=== PATIENT | male | born 1950 | race Caucasian/White ===

== ENCOUNTER 2018-04-18 10:14 | Emergency (ER) | payer SELFPAY ==
[2018-04-18 10:24] VITALS: BP 179/84; PULSE 65; TEMP 97.7; BMI 26.6
--- NOTE | 2018-04-18 10:51 | PDOC ---
History of Present Illness - General Chief Complaint: Pain Stated Complaint: left ear pain Time Seen by Provider: 04/18/18 10:22 - History of Present Illness Initial Comments: 04/18/18 10:47 68yo M hx HTN presents to the ED with L ear pain, pressure and decreased hearing x 2 days. Denies discharge, bleeding. Denies fevers, chills. No hx ear infection. Denies other sxs of CP, SOB, runny nose, cough, sore throat, headache , weakness, numbness, N/V/D, visual sxs. Denies sick contacts. Past History - Past Medical History Allergies/Adverse Reactions: Allergies Allergy/AdvReac Type Severity Reaction Status Date / Time No Known Allergies Allergy Verified 04/18/18 10:21 Home Medications: Ambulatory Orders Amoxicillin - [Amoxicillin 875mg Tablet -] 875 mg PO BID #20 tablet 04/18/18 COPD: No Disorders: Yes HTN: Yes - Immunization History Td Vaccination: No TDAP Vaccination: No - Suicide/Smoking/Psychosocial Hx Smoking Status: No Smoking History: Never smoked Number of Cigarettes Smoked Daily: 0 Hx Alcohol Use: No Drug/Substance Use Hx: No Substance Use Type: None Review of Systems - Review of Systems Comments:: 04/18/18 10:47 GENERAL/CONSTITUTIONAL: No fever or chills. No weakness. HEAD, EYES, EARS, NOSE AND THROAT: No change in vision. +ear pain, no discharge. No sore throat. GASTROINTESTINAL: No nausea, vomiting, diarrhea or constipation. GENITOURINARY: No dysuria, frequency, or change in urination. CARDIOVASCULAR: No chest pain or shortness of breath. RESPIRATORY: No cough, wheezing, or hemoptysis. MUSCULOSKELETAL: No joint or muscle swelling or pain. No neck or back pain. SKIN: No rash NEUROLOGIC: No headache, vertigo, loss of consciousness, or change in strength/ sensation. ENDOCRINE: No increased thirst. No abnormal weight change. HEMATOLOGIC/LYMPHATIC: No anemia, easy bleeding, or history of blood clots. ALLERGIC/IMMUNOLOGIC: No hives or skin allergy. *Physical Exam - Vital Signs Last Vital Signs Temp Pulse Resp BP Pulse Ox 97.7 F 65 18 179/84 H 100 04/18/18 10:22 04/18/18 10:22 04/18/18 10:22 04/18/18 10:22 04/18/18 10:22 - Physical Exam Comments: 04/18/18 10:48 GENERAL: Awake, alert, and fully oriented, in no acute distress HEAD: No signs of trauma EYES: PERRLA, EOMI, sclera anicteric, conjunctiva clear ENT: Normal hearing, L ear with erythema in canal, bulging TM with no light reflex, and effusion behind TM, R ear with no erythema, no effusion, normal TM with normal light reflex, nares patent, oropharynx clear without exudates. Moist mucosa NECK: Normal ROM, supple, no lymphadenopathy, JVD, or masses LUNGS: Breath sounds equal, clear to auscultation bilaterally. No wheezes, and no crackles HEART: Regular rate and rhythm, normal S1 and S2, no murmurs, rubs or gallops ABDOMEN: Soft, nontender, normoactive bowel sounds. EXTREMITIES: Normal range of motion, no edema. No clubbing or cyanosis. No cords, erythema, or tenderness NEUROLOGICAL: Normal speech, cranial nerves intact, equal strength and sensation b/l, normal gait SKIN: Warm, Dry, normal turgor, no rashes or lesions noted. Medical Decision Making - Medical Decision Making 04/18/18 10:51 68yo M presents to the ED with ear pain, pressure and decreased hearing. Exam consistent with otitis media. Given decreased hearing and pressure, will prescribe amox 875mg BID. Will also refer pt to ENT Dr. Eason. Pt very well appearing, requests DC home I discussed the physical exam findings, ancillary test results and final diagnoses with the patient. I answered all of the patient's questions. The patient was satisfied with the care received and felt comfortable with the discharge plan and treatment plan. The patient will call their primary care physician within 24 hours to arrange follow-up and will return to the Emergency Department with any new, persistent or worsening symptoms. *DC/Admit/Observation/Transfer Diagnosis at time of Disposition: Otitis media, Diminished hearing, Ear pressure - Discharge Dispostion Disposition: HOME Condition at time of disposition: Stable Decision to Admit order: No - Prescriptions Prescriptions: Amoxicillin - [Amoxicillin 875mg Tablet -] 875 mg PO BID #20 tablet - Referrals Referrals: Vadim Eason MD [Staff Physician] - - Patient Instructions Printed Discharge Instructions: Middle Ear Infection Additional Instructions: Call Dr. Eason's office for a follow up appointment within [address] Eason is the research center partner. Take the antibiotics twice a day for 10 days for your infection. For pain or pressure, you may take ibuprofen or tylenol as needed. Follow up with Dr. Berrios within 1 week. Return to the emergency department if you have any new, worsening, or concerning symptoms. .. - Post Discharge Activity - Attestations Physician Attestion: 04/18/18 10:55 I, Dr. Pavan Courtney MD, attest that this document has been prepared under my direction and personally reviewed by me in its entirety. I further attest, that it accurately reflects all work, treatment, procedures and medical decision -making performed by me.
[2018-04-18] MEDS ORDERED: IBUPROFEN 400 MG TABLET (FP) PO ONE ×2 (10:53→10:57)
== END 2018-04-18 11:07 | disposition home or self-care (01) ==
LOC: FER 10:14
DX: H66.92 Otitis media, unspecified, left ear (principal); H91.92 Unspecified hearing loss, left ear; H92.02 Otalgia, left ear; I10 Essential (primary) hypertension
CPT/HCPCS: 99281-25

== ENCOUNTER 2018-04-22 13:29 | Emergency (ER) | payer SELFPAY ==
--- NOTE | 2018-04-22 13:40 | PDOC ---
Attending Attestation - Resident Resident Name: Too Sumner - ED Attending Attestation I have performed the following: I have examined & evaluated the patient, The case was reviewed & discussed with the resident, I agree w/resident's findings & plan, Exceptions are as noted - HPI HPI: 68 yo M recently evaluated in ED for acute otitis media, presents with bleeding from the L ear. He took antibiotics as prescribed, but had not yet called ENT for follow up. He states that his ear started to bleed, and he placed something inside to stop the bleeding. - Physicial Exam PE: GENERAL: Awake, alert, and fully oriented, in no acute distress HEAD: No signs of trauma EYES: PERRLA, EOMI, sclera anicteric, L sided conjunctival injection. No sinus tenderness. ENT: Auricles normal inspection, nares patent, oropharynx clear without exudates. Moist mucosa. L TM perforated with small fuzzy object visualized next to the ossicles. No active bleeding. No mastoid tenderness. NECK: Normal ROM, supple, no lymphadenopathy, JVD, or masses EXTREMITIES: Normal range of motion, no edema. No clubbing or cyanosis. No cords, erythema, or tenderness NEUROLOGICAL: Cranial nerves II through XII grossly intact. Normal speech, normal gait. Motor and sensation intact. SKIN: Warm, Dry, normal turgor, no rashes or lesions noted. - Medical Decision Making Discussed with Dr. Eason, will see patient in his office presently.
[2018-04-22 13:41] VITALS: BP 148/93; PULSE 70; TEMP 98.5; BMI 23.8
--- NOTE | 2018-04-22 13:49 | PDOC ---
History of Present Illness - General Chief Complaint: Ear Problem Stated Complaint: EAR PROBLEM Time Seen by Provider: 04/22/18 13:35 History Source: Patient Exam Limitations: No Limitations - History of Present Illness Initial Comments: 04/22/18 13:58 68 [place] man with pmh of htn, seen and treated for L otitis media in this ER on 04/18 coming back today for worsening of symptoms: L ear pain, and bleeding from the ear. He has been taking his amoxicillin twice a day but had to come back because the symptoms were too uncomfortable. Didn't call Dr. Eason after he was discharged. Misunderstood due to language barrier. He also states that his eye has been red for the past 2 days. He tried cleaning his ear but is adamant he didn't leave anything in there. Denies fever, chills, neck pain 04/22/18 14:14 Past History - Past Medical History Allergies/Adverse Reactions: Allergies Allergy/AdvReac Type Severity Reaction Status Date / Time No Known Allergies Allergy Verified 04/22/18 13:39 Home Medications: Ambulatory Orders Amoxicillin - [Amoxicillin 875mg Tablet -] 875 mg PO BID #20 tablet 04/18/18 COPD: No Disorders: Yes HTN: Yes - Immunization History Td Vaccination: No TDAP Vaccination: No - Suicide/Smoking/Psychosocial Hx Smoking Status: No Smoking History: Never smoked Number of Cigarettes Smoked Daily: 0 Hx Alcohol Use: No Drug/Substance Use Hx: No Substance Use Type: None Review of Systems - Review of Systems Able to Perform ROS?: Yes Is the patient limited French proficient: No Constitutional: No: Symptoms Reported HEENTM: Yes: See HPI Respiratory: No: Symptoms reported Cardiac (ROS): No: Symptoms Reported ABD/GI: No: Symptoms Reported : No: Symptoms Reported Musculoskeletal: No: Symptoms Reported Integumentary: No: Symptoms Reported Neurological: No: Symptoms reported All Other Systems: Reviewed and Negative *Physical Exam - Vital Signs Last Vital Signs Temp Pulse Resp BP Pulse Ox 98.5 F 70 18 148/93 100 04/22/18 13:40 04/22/18 13:40 04/22/18 13:40 04/22/18 13:40 04/22/18 13:40 - Physical Exam General Appearance: Yes: Nourished, Appropriately Dressed. No: Apparent Distress HEENT: positive: Other (ruptured left tympanic membrane draining serosanguinous fluid, possible foreign object seen. ) Respiratory/Chest: positive: Lungs Clear, Normal Breath Sounds. negative: Chest Tender, Respiratory Distress Cardiovascular: positive: Regular Rhythm, Regular Rate, S1, S2 Gastrointestinal/Abdominal: positive: Normal Bowel Sounds, Flat, Soft. negative : Tender Moderate Sedation - Procedure Monitoring Vital Signs: Procedure Monitoring Vital Signs Temperature 98.5 F 04/22/18 13:40 Pulse Rate 70 04/22/18 13:40 Respiratory Rate 18 04/22/18 13:40 Blood Pressure 148/93 04/22/18 13:40 O2 Sat by Pulse Oximetry (%) 100 04/22/18 13:40 Medical Decision Making - Medical Decision Making 04/22/18 14:22 68 with worsening symptoms of otitis media and ruptured TM possibly with foreign object seen. Spoke to Dr. Eason who will see the patient immediately in his office and continue care. DC. *DC/Admit/Observation/Transfer Diagnosis at time of Disposition: Otitis media, Perforated left tympanic membrane on examination - Discharge Dispostion Disposition: HOME Condition at time of disposition: Stable Decision to Admit order: No - Referrals Referrals: Vadim Eason MD [Staff Physician] - - Patient Instructions Printed Discharge Instructions: Middle Ear Infection Additional Instructions: Go directly to Dr. Eason's office as he is expecting you for treatment. - Post Discharge Activity
== END 2018-04-22 14:03 | disposition home or self-care (01) ==
LOC: FER 13:29
DX: H66.92 Otitis media, unspecified, left ear (principal); H72.92 Unspecified perforation of tympanic membrane, left ear; I10 Essential (primary) hypertension
CPT/HCPCS: 99282-25

== ENCOUNTER 2021-01-19 13:34 | Emergency (ER) | payer SELFPAY ==
[2021-01-19] MEDS ORDERED: TETRACAINE 0.5% HCL 0.6ML DROPPER.BOTTLE OS ONE (13:39)
[2021-01-19] MEDS ORDERED: FLUORESCEIN NA 1 EA STRIP OS ONE (13:39)
[2021-01-19] MEDS ORDERED: TETRACAINE 0.5% HCL 0.6ML DROPPER.BOTTLE OD ONE (13:40)
[2021-01-19] MEDS ORDERED: FLUORESCEIN NA 1 EA STRIP OD ONE (13:40)
[2021-01-19 13:43] VITALS: TEMP 98.4; BMI 24.5
[2021-01-19 14:56] VITALS: BP 156/88; PULSE 91
== END 2021-01-19 15:33 | disposition short-term general hospital (02) ==
LOC: FER 13:34
DX: S05.02XA Injury of conjunctiva and corneal abrasion without foreign body, left eye, initial encounter (principal); W22.8XXA Striking against or struck by other objects, initial encounter
CPT/HCPCS: 76529; 99283-25